=== PATIENT | male | born 1950 | race Two or more races ===

== ENCOUNTER 2017-10-30 08:18 | Outpatient (CLI) | payer OTHER | END 2017-10-30 16:22 | disposition home or self-care (01) | LOC: SONOGRAMA 08:18 | DX: I10 Essential (primary) hypertension (principal); R53.81 Other malaise; R42 Dizziness and giddiness; K64.8 Other hemorrhoids; Z13.89 Encounter for screening for other disorder; Z13.220 Encounter for screening for lipoid disorders; Z12.5 Encounter for screening for malignant neoplasm of prostate; Z12.11 Encounter for screening for malignant neoplasm of colon; Z72.0 Tobacco use ==

== ENCOUNTER 2018-04-29 11:40 | Outpatient (CLI) | payer OTHER | END 2018-04-29 15:36 | disposition home or self-care (01) | LOC: MRI 11:40 | DX: G89.29 Other chronic pain (principal); R07.0 Pain in throat; R22.1 Localized swelling, mass and lump, neck | CPT/HCPCS: 70540 ==

== ENCOUNTER 2020-11-12 09:18 | Outpatient (CLI) | payer OTHER | END 2020-11-12 09:32 | disposition home or self-care (01) | LOC: RAD 09:18 | PROVIDERS: ATTEND Specialist | DX: G89.21 Chronic pain due to trauma (principal) ==

== ENCOUNTER 2022-03-24 12:19 | Outpatient (CLI) | payer OTHER | END 2022-03-24 12:26 | disposition home or self-care (01) | LOC: TOM 12:19 | PROVIDERS: ATTEND General Practice | DX: H65.191 Other acute nonsuppurative otitis media, right ear (principal); R51.9 Headache, unspecified ==

== ENCOUNTER 2023-04-26 07:03 | Outpatient (CLI) | payer OTHER ==
[2023-04-26] MEDS ORDERED: CANDESARTAN CILE8 MG PO (14:50)
== END 2023-04-26 07:08 | disposition home or self-care (01) ==
LOC: TOM 07:03 → RAD 07:03 → TOM 07:08
PROVIDERS: ATTEND Colon & Rectal Surgery
DX: K59.00 Constipation, unspecified (principal); N39.0 Urinary tract infection, site not specified; K62.5 Hemorrhage of anus and rectum; D59.8 Other acquired hemolytic anemias; Z11.59 Encounter for screening for other viral diseases; Z20.828 Contact with and (suspected) exposure to other viral communicable diseases; D68.9 Coagulation defect, unspecified; R05.1 Acute cough; R50.9 Fever, unspecified; K63.5 Polyp of colon
CPT/HCPCS: 71046; 74177; Q9965

== ENCOUNTER 2023-04-30 09:19 | Day surgery (SDC) | payer OTHER ==
[2023-04-26 15:08] LABS: ALBUMIN 4.1 gm/dL (3.4-5.0); BILIRUBIN TOTAL 0.56 mg/dL (0.3-1.2); CALCIUM 9.5 mg/dL (8.5-10.1); CREATININE SERUM 1.05 mg/dL (0.70-1.30); GFR 68.86; GLOBULINA 3.8 G/DL (2.4-3.5); POTASSIUM 3.21 mEq/L (3.5-5.1); TOTAL PROTEIN 7.9 gm/dL (6.4-8.2)
[~2023-04-30] VITALS: Ht 165.1 cm; Wt 72.6 kg
[~2023-04-30 09:19] MED LIST: CANDESARTAN CILE8 MG PO
[2023-04-30] MEDS ORDERED: BUPIVACAINE HCL/PF 0.5% 30ML ML ONE (14:22)
[2023-04-30] MEDS ORDERED: METRONIDAZOLE/SODIUM CHLORIDE 500 MG/100 ML PIGGYBACK IV ONE ×2 (14:22→16:00)
[2023-04-30] MEDS ORDERED: LIDOCAINE HCL 1%/Epi 20ML VIAL IJ ONE ×2 (14:23→16:00)
[2023-04-30] MEDS ORDERED: CEFTRIAXONE SODIUM 2,000 MG VIAL ONE (14:23)
[2023-04-30] MEDS ORDERED: CEFTRIAXONE SODIUM 2,000 MG VIAL IV ONE (16:00)
[2023-04-30] MEDS ORDERED: BUPIVACAINE HCL 30 ML VIAL IJ ONE (16:00)
== END 2023-04-30 18:00 | disposition home or self-care (01) ==
LOC: CIR.AMB 09:19
PROVIDERS: ATTEND Colon & Rectal Surgery
DX: D12.1 Benign neoplasm of appendix (principal); I10 Essential (primary) hypertension; Z20.822 Contact with and (suspected) exposure to COVID-19